=== PATIENT | female | born 1970 | race African-American/Black ===

== ENCOUNTER 2019-05-25 15:55 | Emergency (ER) | payer OTHER ==
[~2019-05-25 15:55] MED LIST: Iopamidol-370 76% 500 ML 1 ML ONE
[2019-05-25] MEDS ORDERED: Aspirin 325 MG TAB ONE (16:24)
[2019-05-25] MEDS ORDERED: Nitroglycerin 0.4 MG TAB 1 EACH ONE (16:24)
[2019-05-25] MEDS ORDERED: Nitroglycerin 2% Ointment 1 INCH/1 GM Packet ONE (16:29)
[2019-05-25 16:36] LABS: #Eosinphils 0.1 thou/uL (0.0-0.7); #Lymphocytes 1.7 thou/uL (1.20-3.40); #Monocytes 0.3 thou/uL (0.11-0.59); #Neutrophils 4.4 thou/uL (1.40-6.50); %Basophils 0.7 % (0.0-1.0); %Eosinophils 1.3 % (0.0-10.0); %Lymphocytes 26.4 % (21.0-51.0); %Monocytes 4.7 % (0.0-10.0); %Neutrophils 66.9 % (42.0-75.0); Hemoglobin 14.4 g/dL (12.0-16.0); Mean Corpuscular HGB CONC 34.2 g/dL (32.0-36.0); Mean Corpuscular Volume 87.9 fL (78.0-98.0); Mean Platelet Volume 8.3 fL (7.4-10.4); Platelet Count 283 thou/uL (130-400); RBC Distribution Width 11.8 % (11.5-14.5); Red Blood Cell (RBC) Count 4.81 mill/uL (4.20-5.40); White Blood Cell (WBC) Count 6.6 thou/uL (4.8-10.8)
[2019-05-25] MEDS ORDERED: Ondansetron PF 4 MG/2 ML Vial ONE (16:37)
[2019-05-25 16:53] LABS: BHCG - Serum Negative (NEGATIVE); Pregs Control Background? CLEAR/WHITE (CLR/WHITE); Pregs Control Bar Appear? YES (CONTROL BAR)
[2019-05-25 17:13] LABS: ALT (SGPT) 14 U/L (8-55); AST (SGOT) 20 U/L (5-34); Albumin 4.8 g/dL (3.5-5.0); Alkaline Phosphatase 102 U/L (40-110); Anion Gap 18 mmol/L (10-20); BUN (Urea Nitrogen) 18 mg/dL (7.0-18.7); Calc. Creatinine Clearance 0 mL/min (70-130); Calcium 9.6 mg/dL (7.8-10.44); Carbon Dioxide 20 mmol/L (22-29); Chloride 108 mmol/L (98-107); Estimated GFR-MDRD 62; Glucose 94 mg/dL (70-105); Potassium 4.1 mmol/L (3.5-5.1); Protein, Total 7.8 g/dL (6.0-8.3); Sodium 142 mmol/L (136-145)
--- NOTE | 2019-05-25 17:20 | CT ---
CT ANGIO OF CHEST PERFORMED WITH INTRAVENOUS CONTRAST ENHANCEMENT WITH 3D RECONSTRUCTIONS: History: Chest pain x 2 days. FINDINGS: The lungs are clear of any infiltrative process. There is no evidence of pulmonary nodules or pleural effusions. The thoracic aorta is normal in caliber. There is good pulmonary artery opacification and there is no CT evidence for pulmonary embolus. Visualized liver parenchyma shows no focal findings. Right and left adrenal glands are normal. IMPRESSION: No CT evidence of pulmonary embolus. POS: [facility]
--- NOTE | 2019-05-25 17:21 | RAD ---
PORTABLE CHEST: History: Chest pain x 2 days FINDINGS: Heart size and mediastinum are within normal limits. The lungs are clear of infiltrates. No significa nt bony findings. IMPRESSION: No active intrathoracic disease. POS: [facility]
[2019-05-25] MEDS ORDERED: Acetaminophen 500 MG TAB ONE ×2 (22:44)
--- NOTE | 2019-05-27 15:39 | EKG ---
Test Reason : Blood Pressure : / mmHG Vent. Rate : 081 BPM Atrial Rate : 081 BPM P-R Int : 172 ms QRS Dur : 092 ms QT Int : 380 ms P-R-T Axes : 059 015 026 degrees QTc Int : 441 ms Normal sinus rhythm Possible Left atrial enlargement Nonspecific T wave abnormality Abnormal ECG Confirmed by YEFRI REZA DO ([id number]), commercial production editor ALEXIS CASTELLANOS ([id number] on 05/27/2019 3:38:51 PM Referred By: Confirmed By:YEFRI REZA DO
== END 2019-05-26 01:12 | disposition short-term general hospital (02) ==
LOC: ERS 15:55
DX: R07.9 Chest pain, unspecified (principal); I16.0 Hypertensive urgency; I10 Essential (primary) hypertension; F41.9 Anxiety disorder, unspecified; F32.9 Major depressive disorder, single episode, unspecified; F43.10 Post-traumatic stress disorder, unspecified; Z79.899 Other long term (current) drug therapy
CPT/HCPCS: 36415; 71045; 71275; 80053; 83880; 84484; 84703; 85025; 93005; 96361; 96374; J2405; Q9967